=== PATIENT | female | born 1950 | race Caucasian/White ===

== ENCOUNTER → 2016-11-30 | Outpatient (CLI) | payer OTHER ==
[~2016-11-30] MED LIST: LIDOCAINE 1% 30 ML SDV ONE; NA BICARBONATE 50 MEQ/50 ML VIAL ONE
[2016-11-30 11:27] LABS: PROTEIN, CSF 54 mg/dL (12-60)
[2016-11-30 11:47] LABS: CSF APPEARANCE CLEAR (CLEAR); CSF COLOR COLORLESS (COLORLESS); WBC, CSF 0 /mm3 (0-5)
[2016-11-30 11:48] LABS: CSF APPEARANCE CLEAR (CLEAR); CSF COLOR COLORLESS (COLORLESS); WBC, CSF 0 /mm3 (0-5)
--- NOTE | 2016-11-30 12:56 | DX ---
Fluoroscopically Guided Lumbar Puncture November 30, 2016 Indication: Headache. Indeterminate meningeal enhancement on outside MRI. Crosscutting Measure #226: Current tobacco user: no. Informed consent was given, which included the risk of spinal headache, infection, aseptic meningitis and bleeding. The patient agreed to proceed. Technique: The right L3-L4 interlaminar space was identified with preprocedural fluoroscopy and the s kin was marked. The skin was sterilely prepped and draped. The skin and deep soft tissues were numbe d with 1% lidocaine. Under direct fluoroscopy, a 22-gauge Nolan needle was introduced into the CSF space. Normal opening pressure of 11 cm H2O. Eight (8) mL of clear fluid were obtained and sent to t Laboratory in four aliquots. The patient tolerated the procedure well and was returned to the [place] of origin without complication. Impression: 1. Successful diagnostic lumbar puncture. 2. 8 mL of CSF were sent to the Laboratory. 3. Normal opening pressure: 11 cm H20.
[2016-12-01 15:13] LABS: FINAL DIAGNOSIS See Comments (()); MICROSCOPIC DESCRIPTION See Comments (()); SPECIAL STUDIES See Comments (())
== END ==
LOC: FIMAGING 09:05
PROVIDERS: ATTEND Psychiatry & Neurology Neurology
PROC: 009U3ZX Drainage of Spinal Canal, Percutaneous Approach, Diagnostic (ICD-10-PCS; principal; 2016-11-30)
DX: R51 Headache (principal); R94.02 Abnormal brain scan
CPT/HCPCS: 85060-90; 88184-90; 88185-91

== ENCOUNTER → 2016-12-24 | Outpatient (CLI) | payer OTHER ==
--- NOTE | 2016-12-24 14:15 | DX ---
Chest, Two Views - December 24, 2016, at 0933 hours History: Brain lesion, suspect cancer. Comparison: November 2007. Findings: Cardiac silhouette is within normal range. No definite pulmonary nodules. No pneumonia, con gestive heart failure, pleural effusion, or pneumothorax. Impression: 1. No definite pulmonary nodules. 2. No acute pulmonary disease.
== END ==
LOC: FIMAGING 09:33
PROVIDERS: ATTEND Internal Medicine Hematology & Oncology
DX: G93.9 Disorder of brain, unspecified (principal)

== ENCOUNTER → 2018-05-26 | Outpatient (CLI) | payer OTHER | LOC: FIMAGING 12:30 | PROVIDERS: ATTEND Family Medicine | DX: Z12.31 Encounter for screening mammogram for malignant neoplasm of breast (principal) ==

== ENCOUNTER → 2019-04-28 | Outpatient (CLI) | payer OTHER | LOC: FIMAGING 10:13 ==